=== PATIENT | male | born 1985 | race Caucasian/White ===

== ENCOUNTER 2024-03-10 21:46 | Emergency (ER) | payer MEDICAID ==
[~2024-03-10] VITALS: Ht 175.3 cm; Wt 91.0 kg
[2024-03-10 21:57] VITALS: TEMP 98.2
[2024-03-10 22:28] LABS: ALBUMIN 4.2 G/DL (3.4-5.0); ANION GAP 12 (8-16); BLOOD UREA NITROGEN 9 MG/DL (7-18); BUN/CREATININE RATIO 9.1 (10.0-20.0); CHLORIDE 100 MMOL/L (99-107); CREATININE 0.99 MG/DL (0.60-1.10); GLUCOSE 133 MG/DL (70-104); POTASSIUM 3.2 MMOL/L (3.5-5.1); PRO BRAIN NATRIURETIC PEPTIDE < 30 PG/ML (0-125); SODIUM 139 MMOL/L (135-145); TOTAL CARBON DIOXIDE 27.5 MMOL/L (24-32); eCRCL 100 ML/MIN; eGFR 84 ML/MIN
[2024-03-10 23:17] LABS: BASOPHILS % (AUTO) 0.2 % (0-1); EOSINOPHILS % (AUTO) 0.2 % (0-6); HEMATOCRIT 44.3 % (42.0-52.0); HEMOGLOBIN 15.7 g/dl (14.0-17.9); LYMPHOCYTES # (AUTO) 1.1 X10'3 (1.1-4.8); LYMPHOCYTES % (AUTO) 16.1 % (21-51); MEAN CORPUSCULAR HEMOGLOBIN 33.2 PG (27.0-31.0); MEAN CORPUSCULAR HGB CONC 35.5 g/dL (33.0-36.5); MEAN CORPUSCULAR VOLUME 93.3 FL (78-98); MEAN PLATELET VOLUME 8.4 FL (7.4-10.4); MONOCYTES # (AUTO) 0.6 X10'3 (0-0.9); MONOCYTES % (AUTO) 8.8 % (2-12); NEUTROPHILS # (AUTO) 5.2 X10'3 (1.8-7.7); NEUTROPHILS % (AUTO) 74.7 % (42-75); PLATELET COUNT 189 X10'3 (140-440); RED BLOOD COUNT 4.75 X10'6 (4.70-6.10)
[2024-03-11] MEDS: LORazepam 2 mg/ml vial IV ONE (01:05)
[2024-03-11] MEDS: normal saline 1000ml 1,000 ML IV ONE (01:05)
[2024-03-11 01:17] LABS: BILIRUBIN,URINE NEGATIVE (Neg); CLARITY,URINE CLEAR (Clear); COLOR,URINE YELLOW (Yellow); GLUCOSE, URINE NEGATIVE (Neg); KETONES,URINE NEGATIVE (Neg); LEUKOCYTE ESTERASE ,URINE NEGATIVE (Neg); NITRITES, URINE NEGATIVE (Neg); OCCULT BLOOD,URINE NEGATIVE (Neg); PH,URINE 6.5 (4.8-8.0); PROTEIN,URINE NEGATIVE (Neg); UROBILINOGEN,URINE 0.2 E.U/dL (0.2-1.0)
[2024-03-11 01:22] LABS: UA COLLECTION TYPE CLN CATCH MIDSTREAM
[2024-03-11 01:33] LABS: URINE AMPHETAMINE SCREEN NEGATIVE (Neg); URINE BARBITUATE SCREEN NEGATIVE (Neg); URINE BENZODIAZEPINES SCREEN NEGATIVE (Neg); URINE CANNABINOID SCREEN NEGATIVE (Neg); URINE COCAINE SCREEN POSITIVE (Neg); URINE METHADONE SCREEN NEGATIVE (Neg); URINE OPIATE SCREEN NEGATIVE (Neg); URINE PHENCYCLIDINE SCREEN NEGATIVE (Neg)
[2024-03-11 01:34] LABS: ETHANOL < 10 MG/DL (<10)
[2024-03-11] MEDS ORDERED: LORA-268 PO (01:56)
[2024-03-11 02:02] VITALS: BP 149/93; PULSE 82; RESP 14; O2SAT 99
== END 2024-03-11 02:04 | disposition home or self-care (01) ==
LOC: ER 21:56
DX: F41.9 Anxiety disorder, unspecified (principal); Z79.899 Other long term (current) drug therapy
CPT/HCPCS: 36415; 71045; 80048; 80305; 80320; 81003; 83880; 84484; 85025; 93005; 96361; 96374; 99285; J2060; J7030

== ENCOUNTER 2025-07-04 22:33 | Emergency (ER) | payer MEDICAID ==
[~2025-07-04] VITALS: Ht 175.3 cm; Wt 91.4 kg
[~2025-07-04 22:33] MED LIST: LORA-268 PO
[2025-07-04 22:36] VITALS: BP 169/122; TEMP 98.6
--- NOTE | 2025-07-04 22:58 | Physician Documentation ---
History of Present Illness Chief Complaint: Abdominal Pain Stated Complaint: ABD PAIN Time Seen by MD: 22:58 HPI 39-year-old male presenting with epigastric pain He tells me that he has been having pain in his upper central abdomen. It has been intermittent, and occasionally severe. It is worse with eating and drinking. He actually went to urgent care earlier today, and they told him it was likely his stomach. They prescribed him omeprazole, sucralfate and Zofran, but he was not able to get it from the pharmacy. He does eat a lot of spicy food and drinks a lot of alcohol. He does not take any antacid medications. No history of abdominal surgeries No fevers, chills, shortness of breath, chest pain, flank pain, diarrhea, blood in his stool per Medication Reconciliation Allergies: Coded Allergies: No Known Allergies (Unverified , 03/10/24) Scheduled PRN Lorazepam (Ativan), 1 TAB PO Q12H PRN PRN for anxiety Past Medical History Past Medical History: *PSYCH*, Anxiety, Depression Review of Systems Constitutional: Denies: fever Cardiovascular: Denies: chest pain Gastrointestinal: Reports: abdominal pain, nausea, vomiting; Denies: melena Physical Exam Vital Signs: Temperature: 98.6, Source: Oral, Heart Rate: 93, Respiratory Rate: 16, BP: 169/122, Pulse Oximetry: 96, Weight: 91.400 Physical Exam General: This is a pleasant and overall well-appearing young man, at bedside HEENT: Atraumatic, oropharynx is moist Heart: Mild tachycardia, no murmur, normal-appearing peripheral perfusion Lungs: Clear breath sounds bilateral, normal work of breathing, normal oxygen saturation on room air Abdomen: Soft, nondistended, focal tenderness to palpation in the epigastric region only, otherwise nontender, no rebound or guarding Neuro: Alert and oriented Psychiatric: Calm and cooperative with exam Progress Results/Orders Results/Orders Vital Signs 07/04/25 22:36 Temp 98.6 Pulse 93 Resp 16 B/P (MAP) 169/122 Pulse Ox 96 Medical Decision Making Additional Comments Differential includes gastritis, pancreatitis, hepatitis, gallbladder disease, doubt heart or lung condition Assessment 39-year-old male who presents with epigastric pain. Per his history and exam, this seems consistent with gastritis or peptic ulcer disease. He has no findings to suggest a heart or lung process. He otherwise has a benign abdominal exam. Labs were obtained which show no acute abnormality including no pancreatitis. He was given a GI cocktail after which his symptoms completely resolved. Overall this is consistent with gastritis or peptic ulcer disease. He will be discharged with the previous treatment for emergent care including omeprazole and sucralfate. He was given dietary changes and home care instructions. Departure Time of Disposition: 00:13 Disposition: 01 HOME / SELF CARE / HOMELESS Impression: Primary Impression: Acute gastritis Condition: Improved Discharge Instructions: Gastritis, Adult Referrals: NO PRIMARY CARE PROVIDER (PCP) Education Educated: Patient, Family Educated regarding: diagnosis, treatment, need for follow up Signature Scribe Signature: na Attestation: CHRISTINE Mares MD Jul 04, 2025 22:58
[2025-07-04] MEDS: LIDOcaine 2% Viscous 15ml cup MM ONE (23:41)
[2025-07-04] MEDS: mag hydrox/Alum hydrox/simeth 30ml oral suspension PO ONE (23:42)
[2025-07-04 23:45] LABS: MEAN PLATELET VOLUME 7.6 FL (7.4-10.4); RED CELL DISTRIBUTION WIDTH 13.6 % (11.5-14.5)
[2025-07-04 23:56] LABS: CREATININE 0.75 MG/DL (0.60-1.10); TOTAL CARBON DIOXIDE 28.3 MMOL/L (24-32); eCRCL 131 ML/MIN; eGFR > 90 ML/MIN
[2025-07-05 00:18] VITALS: PULSE 88; RESP 16; O2SAT 100
== END 2025-07-05 00:22 | disposition home or self-care (01) ==
LOC: ER 22:34
DX: K29.00 Acute gastritis without bleeding (principal); F41.9 Anxiety disorder, unspecified; F32.A Depression, unspecified
CPT/HCPCS: 36415; 80053; 83690; 85025; 99283